=== PATIENT | female | born 1980 | race Caucasian/White ===

== ENCOUNTER 2017-01-17 09:19 | Emergency (ER) | payer OTHER ==
[2017-01-17 09:20] VITALS: BMI 28.1
[2017-01-17 09:40] VITALS: RESP 16
[2017-01-17] MEDS ORDERED: Sodium Chloride 0.9% 1,000 ML IV ONE (09:41)
[2017-01-17] MEDS ORDERED: Sodium Chloride 0.9% 1,000 ML ONE (09:50)
--- NOTE | 2017-01-17 10:04 | C.PDOC ---
History Of Present Illness 36 y/o female with Hx of seizure brought to ED by EMS after having a seizure episode that lasted 3 min. Patient has been seen several times at ED for similar symptoms. At bedside patient is at postictal AAOX3 but responding slowly to questions. No other complaints at this time. Time Seen by Provider: 01/17/17 09:30 Chief Complaint (Nursing): Seizure History Per: Patient History/Exam Limitations: no limitations Recent Seizure Activity Began: Just Before Arrival Length Of Seizures (Duration): Minutes (3) Past Medical History Reviewed: Historical Data, Nursing Documentation, Vital Signs Vital Signs: Last Vital Signs Temp 98.4 F 01/17/17 14:02 Pulse 76 01/17/17 14:02 Resp 16 01/17/17 14:02 BP 114/71 01/17/17 14:02 Pulse Ox 99 01/17/17 18:08 - Medical History PMH: Seizures Surgical History: No Surg Hx Family History: States: Unknown Family Hx - Social History Hx Alcohol Use: No Hx Substance Use: No - Immunization History Hx Tetanus Toxoid Vaccination: No Hx Influenza Vaccination: No Hx Pneumococcal Vaccination: No Review Of Systems Except As Marked, All Systems Reviewed And Found Negative. Neurological: Positive for: Seizures Physical Exam - Physical Exam Appears: Non-toxic, No Acute Distress Skin: Warm, Dry, No Rash Head: Atraumatic Eye(s): bilateral: Normal Inspection Oral Mucosa: Moist Lips: Other (Dried blood on lips) Neck: Normal ROM, Supple Lymphatic: Adenopathy Cardiovascular: Rhythm Regular, No Murmur Respiratory: Normal Breath Sounds, No Rales, No Rhonchi, No Wheezing Gastrointestinal/Abdominal: Soft, No Tenderness, No Guarding, No Rebound Extremity: Tenderness (left humerus), No Deformity, No Swelling Neurological/Psych: Oriented x3 ED Course And Treatment - Laboratory Results Result Diagrams: 01/17/17 10:53 01/17/17 10:53 ECG: Interpreted By Me, Viewed By Me ECG Rhythm: Sinus Tachycardia ECG Interpretation: No Acute Changes Rate From EC (bpm) O2 Sat by Pulse Oximetry: 99 (ra) Pulse Ox Interpretation: Normal Medical Decision Making Medical Decision Making: known seizure d/o- labs imaging pending- pt initially mildly post ictal Plan: * Blood work * UA * xray * ECG * 1140: pt now more awake alert oriented x3 . ct head pending pt home antiantieleptic dosed 100: pt now awake alert, ambulatory, aksing for dc. friend bedside to take pt home. dr vidal updated Disposition - Disposition Referrals: [facility] [Outside] [facility] [Outside] [facility] [Outside] Melodie Villareal MD [Staff Provider] - Disposition: HOME/ ROUTINE Disposition Time: 11:40 Condition: STABLE Additional Instructions: please follow up with your doctor/specialist. return to er with worsening symptoms or concerns. Instructions: Recurrent Seizures in Adults (ED) Forms: [employer] ([place]) - Clinical Impression Clinical Impression: Seizure - Scribe Statement The provider has reviewed the documentation as recorded by the Scribcourtney Rizzo All medical record entries made by the Scribe were at my direction and personally dictated by me. I have reviewed the chart and agree that the record accurately reflects my personal performance of the history, physical exam, medical decision making, and the department course for this patient. I have also personally directed, reviewed, and agree with the discharge instructions and disposition.
--- NOTE | 2017-01-17 10:04 | RAD ---
PROCEDURE: CHEST RADIOGRAPH, 1 VIEW HISTORY: Seizure COMPARISON: Chest radiographs 03/14/2016. FINDINGS: LUNGS: No acute infiltrate bilaterally. Scoliotic thoracic spinal deformity again appreciated. Inspiratory effort is borderline diminished. PLEURA: No pneumothorax or pleural fluid seen. CARDIOVASCULAR: Normal. OSSEOUS STRUCTURES: No significant abnormalities. VISUALIZED UPPER ABDOMEN: Normal. OTHER FINDINGS: None. IMPRESSION: No acute infiltrate appreciated bilaterally. Borderline diminished inspiratory effort. No pulmonary vascular derangement or cardiomegaly.
--- NOTE | 2017-01-17 10:09 | RAD ---
PROCEDURE: Radiographs of the Left Shoulder HISTORY: seizure/trauma COMPARISON: No prior. FINDINGS: BONES: Normal. No fracture. No suspicious lytic or blastic change. JOINTS: Normal. Glenohumeral and acromioclavicular joints preserved. No osteoarthritis. SOFT TISSUES: Normal. OTHER FINDINGS: None. IMPRESSION: Normal radiographs of the left shoulder.
--- NOTE | 2017-01-17 10:10 | RAD ---
PROCEDURE: Radiographs of the left humerus. HISTORY: seizure/trauma COMPARISON: None. FINDINGS: BONES: No suspicious lytic or blastic change. . No fracture or focal lesion. SOFT TISSUES: Normal. OTHER FINDINGS: None. IMPRESSION: Normal radiographs of left humerus.
[2017-01-17 10:57] LABS: BASO # 0.1 K/uL (0.0-0.2); BASO % 0.9 % (0.0-2.0); EOS % 0.1 % (0.0-4.0); HEMATOCRIT 37.6 % (34.0-47.0); LYMPH # 1.5 K/uL (1.0-4.3); LYMPH % 11.1 % (20.0-40.0); MEAN CORPUSCULAR HGB CONC 32.5 g/dL (33.0-37.0); MEAN PLATELET VOLUME 8.5 fL (7.2-11.7); MONO # 0.9 K/uL (0.0-0.8); MONO % 6.6 % (0.0-10.0); RED CELL DISTRIBUTION WIDTH 14.4 % (11.5-14.5); WHITE BLOOD COUNT 13.7 K/uL (4.8-10.8)
[2017-01-17 11:06] LABS: CHLORIDE 103 mmol/L (98-107)
[2017-01-17 11:07] LABS: INR 1.1; POTASSIUM 4.3 mmol/L (3.6-5.2); SODIUM 141 mmol/L (132-148)
[2017-01-17 11:09] LABS: AST/SGOT 19 U/L (14-36); BILIRUBIN,TOTAL 0.4 mg/dL (0.2-1.3); CARBON DIOXIDE 25 mmol/L (22-30); GFR AFRICAN-AMERICAN > 60
[2017-01-17 11:10] LABS: ALB/GLOB RATIO 1.3 (1.0-2.1); ALCOHOL SERUM < 10 mg/dl (0-10); ALKALINE PHOSPHATASE 80 U/L (38-126); ALT/SGPT 20 U/L (9-52); BLOOD UREA NITROGEN 6 mg/dL (7-17); CALCIUM 9.4 mg/dl (8.6-10.4); GLUCOSE,RANDOM 90 mg/dL (65-105)
[2017-01-17 11:31] LABS: RBC URINE < 1 /hpf (0-3); URINE BILIRUBIN NEGATIVE (NEGATIVE); URINE BLOOD NEGATIVE (NEGATIVE); URINE COLOR Straw (YELLOW); URINE GLUCOSE (UA) NORMAL (Normal); URINE KETONE NEGATIVE (NEGATIVE); URINE LEUKOCYTE ESTERASE NEG Leu/uL (Negative); URINE PROTEIN NEGATIVE (NEGATIVE); URINE UROBILINOGEN NORMAL mg/dL (0.2-1.0); WBC URINE < 1 /hpf (0-5)
--- NOTE | 2017-01-17 13:29 | CT ---
PROCEDURE: CT HEAD WITHOUT CONTRAST. HISTORY: seizure COMPARISON: 12/13/2014 TECHNIQUE: Axial computed tomography images were obtained through the head/brain without intravenous contrast. Radiation dose: Total exam DLP = 865.69 mGy-cm. This CT exam was performed using one or more of the following dose reduction techniques: Automated exposure control, adjustment of the mA and/or kV according to patient size, and/or use of iterative reconstruction technique. FINDINGS: HEMORRHAGE: No intracranial hemorrhage. BRAIN: No mass effect or edema. No atrophy or chronic microvascular ischemic changes. VENTRICLES: Unremarkable. No hydrocephalus. CALVARIUM: Unremarkable. PARANASAL SINUSES: Unremarkable as visualized. No significant inflammatory changes. MASTOID AIR CELLS: Unremarkable as visualized. No inflammatory changes. OTHER FINDINGS: None. IMPRESSION: Normal CT of the Head. No intracranial mass, hemorrhage or evidence of acute infarct.
[2017-01-17 14:04] VITALS: BP 114/71; PULSE 76; TEMP 98.4
[2017-01-17 18:08] VITALS: O2SAT 99
--- NOTE | 2017-01-18 15:49 | CARD ---
APPROVED REPORT EKG Measurement Heart [id number] MT [id number] <Conclusion> Sinus tachycardia Otherwise normal ECG
== END 2017-01-17 14:16 | disposition home or self-care (01) ==
LOC: C.ER 09:19
DX: R56.9 Unspecified convulsions (principal)
CPT/HCPCS: 70450; 71010; 73030; 73060; 80053; 80156; 80320; 80324; 80345; 80346; 80349; 80353; 80358; 80361; 81001; 82948; 83992; 84703; 85025; 85610; 85730; 93005; 99285; J7040